=== PATIENT | female | born 1970 | race African-American/Black ===

== ENCOUNTER 2017-03-18 20:46 | Emergency (ER) | payer MEDICAID ==
[~2017-03-18] VITALS: Ht 165.1 cm; Wt 135.0 kg
[~2017-03-18 20:46] MED LIST: ACET-2708 PO; ATEN-42 PO; IBUP-2029 PO; IMIT25; LORA10TA7 PO; METF500T4 PO
[2017-03-19] MEDS ORDERED: SODIUM CHLORIDE 0.9% 1,000 ML IV ONE (02:45)
[2017-03-19] MEDS ORDERED: METOCLOPRAMIDE HCL 10MG/2ML VIAL IV ONE (02:45)
[2017-03-19] MEDS ORDERED: KETOROLAC 30MG/ML VIAL IV ONE (02:45)
[2017-03-19 05:40] VITALS: BP 144/69
== END 2017-03-19 05:33 | disposition home or self-care (01) ==
LOC: ER 22:00
DX: R51 Headache (principal); Z79.899 Other long term (current) drug therapy
CPT/HCPCS: 96361; 96374; 96375; 99285; J1885; J2765; J7030; Z7610

== ENCOUNTER 2018-12-28 05:23 | Emergency (ER) | payer MEDICAID ==
[~2018-12-28] VITALS: Ht 165.1 cm; Wt 129.0 kg
[~2018-12-28 05:23] MED LIST changes: +METF-414 PO; -METF500T4 PO
[2018-12-28 06:48] LABS: BASOPHILS % 1.2 % (0.0-2.0); EOSINOPHILS % 1.3 % (0.0-5.0); HEMATOCRIT. 32.3 % (36.0-48.0); HEMOGLOBIN. 10.4 g/dL (12.0-16.0); LYMPHOCYTES % 45.7 % (20.0-50.0); MEAN CORPUSCULAR HEMOGLOBIN 25.6 pg (28.0-32.0); MEAN CORPUSCULAR VOLUME 79.7 fL (81.0-99.0); MEAN PLATELET VOLUME 6.8 fl (7.4-10.4); MONOCYTES % 6.6 % (2.0-8.0); NEUTROPHILS % 45.2 % (40.0-76.0); PLATELET 311 x1000/uL (130-400); RED BLOOD CELL COUNT 4.06 mill/uL (4.2-5.4); RED CELL DISTRIBUTION WIDTH 18.6 % (11.6-14.6)
[2018-12-28 06:52] LABS: CHLORIDE 108 mEq/L (98-107)
[2018-12-28] MEDS: SODIUM CHLORIDE 0.9% 1,000 ML IV ONE (07:04)
[2018-12-28] MEDS: ONDANSETRON HCL 4MG/2ML INJ IV STA (07:04)
[2018-12-28] MEDS: KETOROLAC 30MG/ML VIAL IV STA (07:04)
[2018-12-28 07:09] LABS: HCG SCREEN NEGATIVE
[2018-12-28 09:32] VITALS: BP 155/89
== END 2018-12-28 09:50 | disposition home or self-care (01) ==
LOC: ER 06:18
DX: G43.909 Migraine, unspecified, not intractable, without status migrainosus (principal); Z79.899 Other long term (current) drug therapy; R07.89 Other chest pain
CPT/HCPCS: 36415; 70450; 80053; 81025; 84703; 85025; 93005; 96374; 96375; 99284; J1885; J2405; J7030

== ENCOUNTER 2020-02-12 12:35 | Emergency (ER) | payer MEDICAID ==
[~2020-02-12] VITALS: Ht 165.1 cm; Wt 136.0 kg
[2020-02-12] MEDS ORDERED: ACETAMINOPHEN 500MG TABLET PO ONE (13:15)
[2020-02-12] MEDS ORDERED: KETOROLAC 30MG/ML VIAL IM SCH (13:15)
[2020-02-12] MEDS ORDERED: DIPHENHYDRAMINE 50MG/ML VIAL IM SCH (13:15)
[2020-02-12 13:29] VITALS: BP 154/74
[2020-02-12] MEDS ORDERED: PROCHLORPERAZINE 10MG/2ML VIAL IM SCH (14:00)
== END 2020-02-12 13:32 | disposition home or self-care (01) ==
LOC: ER 12:35
DX: G43.909 Migraine, unspecified, not intractable, without status migrainosus (principal); I10 Essential (primary) hypertension
CPT/HCPCS: 99283; J0780

== ENCOUNTER 2020-02-12 14:41 | Emergency (ER) | payer MEDICAID ==
[~2020-02-12] VITALS: Ht 165.1 cm; Wt 136.0 kg
[2020-02-12] MEDS ORDERED: KETOROLAC 30MG/ML VIAL IM NR (15:15)
[2020-02-12] MEDS ORDERED: PROCHLORPERAZINE 10MG/2ML VIAL IM NR (15:15)
[2020-02-12] MEDS ORDERED: ACETAMINOPHEN 500MG TABLET PO ONE (15:15)
[2020-02-12] MEDS ORDERED: DIPHENHYDRAMINE 50MG/ML VIAL IM NR (15:15)
[2020-02-12 15:34] VITALS: BP 132/77
== END 2020-02-12 15:39 | disposition home or self-care (01) ==
LOC: ER 14:41
DX: R51 Headache (principal); M25.519 Pain in unspecified shoulder
CPT/HCPCS: 96372; 99284; J0780; J1200; J1885

== ENCOUNTER 2020-04-19 19:48 | Emergency (ER) | payer MEDICAID ==
[~2020-04-19] VITALS: Ht 165.1 cm; Wt 136.0 kg
[2020-04-19] MEDS ORDERED: ONDANSETRON HCL 4MG/2ML INJ IV STA (20:07)
[2020-04-19] MEDS ORDERED: VISCOUS LIDOCAINE 2% 15 ML UDC PO ONE (20:15)
[2020-04-19] MEDS ORDERED: SODIUM CHLORIDE 0.9% 500 ML IV ONE (20:15)
[2020-04-19] MEDS ORDERED: MAGNESIUM/ALUMINUM HYDROXIDE/SIMETHICONE 30ML UDC PO ONE (20:15)
[2020-04-19 20:28] LABS: BASOPHILS % 0.9 % (0.0-2.0); EOSINOPHILS % 1.8 % (0.0-5.0); HEMATOCRIT. 34.9 % (36.0-48.0); HEMOGLOBIN. 11.3 g/dL (12.0-16.0); LYMPHOCYTES % 39.3 % (20.0-50.0); MEAN CORPUSCULAR HEMOGLOBIN 25.7 pg (28.0-32.0); MEAN CORPUSCULAR VOLUME 79.2 fL (81.0-99.0); MEAN PLATELET VOLUME 7.1 fl (7.4-10.4); PLATELET 306 x1000/uL (130-400); RED CELL DISTRIBUTION WIDTH 18.2 % (11.6-14.6)
[2020-04-19 20:35] LABS: CHLORIDE 105 mEq/L (98-107)
[2020-04-19 20:40] LABS: PARTIAL THROMBOPLASTIN TIME 29.6 sec (23.4-31.0); PROTHROMBIN TIME 10.6 sec (9.6-11.0)
[2020-04-19 20:47] LABS: HCG SCREEN NEGATIVE
[2020-04-19] MEDS ORDERED: FAMOTIDINE 20MG TABLET PO ONE (23:00)
[2020-04-19] MEDS ORDERED: IOHEXOL-350 100 ML BOTTLE ONE (23:10)
[2020-04-20] MEDS ORDERED: ASPIRIN 81MG TABLET PO ONE (00:15)
[2020-04-20 01:23] VITALS: BP 134/85
== END 2020-04-20 01:25 | disposition home or self-care (01) ==
LOC: ER 19:48
DX: R07.89 Other chest pain (principal); E66.01 Morbid (severe) obesity due to excess calories; G43.909 Migraine, unspecified, not intractable, without status migrainosus; Z68.42 Body mass index [BMI] 45.0-49.9, adult
CPT/HCPCS: 36415; 80053; 83880; 84484; 84703; 85025; 85610; 85730; 93005; 96361; 96374; 99284; J2405; J7040; Z7610; Q9967

== ENCOUNTER 2021-04-08 02:25 | Emergency (ER) | payer MEDICAID ==
[~2021-04-08] VITALS: Ht 165.1 cm; Wt 137.0 kg
[2021-04-08 05:02] VITALS: BP 177/99
== END 2021-04-08 07:20 | disposition left against medical advice (07) ==
LOC: ER 02:25
DX: U07.1 COVID-19 (principal)
CPT/HCPCS: 87426; 99283

== ENCOUNTER 2022-08-31 18:15 | Emergency (ER) | payer MEDICAID ==
[~2022-08-31] VITALS: Ht 165.1 cm; Wt 144.0 kg
[2022-08-31] MEDS ORDERED: DIPHENHYDRAMINE 50MG/ML VIAL IM ONE (20:30)
[2022-08-31] MEDS ORDERED: ACETAMINOPHEN 325MG TABLET PO ONE (20:30)
[2022-08-31] MEDS ORDERED: KETOROLAC 60MG/2ML VIAL IM ONE (20:30)
[2022-08-31] MEDS ORDERED: ONDANSETRON 4MG ODT PO ONE (20:30)
[2022-08-31] MEDS ORDERED: PROCHLORPERAZINE 10MG/2ML VIAL IM ONE (20:30)
[2022-08-31 21:11] VITALS: BP 173/111
== END 2022-08-31 22:29 | disposition home or self-care (01) ==
LOC: ER 18:15
DX: G43.909 Migraine, unspecified, not intractable, without status migrainosus (principal); R11.0 Nausea; R00.2 Palpitations; Z79.899 Other long term (current) drug therapy
CPT/HCPCS: 93005; 96372; 99284; J0780; J1200; J1885; Q0162

== ENCOUNTER 2023-11-09 07:27 | Emergency (ER) | payer MEDICAID ==
[~2023-11-09] VITALS: Ht 162.6 cm; Wt 115.0 kg
[2023-11-09 07:37] VITALS: O2SAT 98
[2023-11-09] MEDS: KETOROLAC 30MG/ML VIAL IM ONE (08:30)
[2023-11-09] MEDS: METHOCARBAMOL 500MG TABLET PO ONE (08:58)
[2023-11-09] MEDS ORDERED: IBUP-2029 MT (09:16)
[2023-11-09] MEDS ORDERED: METH-653 MT (09:16)
[2023-11-09 09:47] VITALS: BP 162/98; PULSE 88; RESP 18; TEMP 98.7
== END 2023-11-09 09:50 | disposition home or self-care (01) ==
LOC: ER 08:46
DX: S43.102A Unspecified dislocation of left acromioclavicular joint, initial encounter (principal); I10 Essential (primary) hypertension; Z79.899 Other long term (current) drug therapy; Z86.59 Personal history of other mental and behavioral disorders; X58.XXXA Exposure to other specified factors, initial encounter; Y93.89 Activity, other specified; Y92.89 Other specified places as the place of occurrence of the external cause; Y99.8 Other external cause status
CPT/HCPCS: 99283; 29105; 81025; 73030; 96372; J1885; A4565

== ENCOUNTER 2024-04-02 06:24 | Emergency (ER) | payer MEDICAID, OTHER ==
[~2024-04-02] VITALS: Ht 165.1 cm; Wt 136.0 kg
[~2024-04-02 06:24] MED LIST changes: +IBUP-2029 MT; +METH-653 MT
[2024-04-02 06:36] VITALS: O2SAT 99
[2024-04-02 07:05] LABS: CLARITY URINE CLOUDY (CLEAR); COLOR URINE YELLOW (YELLOW); GLUCOSE URINE NEGATIVE (NEGATIVE); KETONES URINE NEGATIVE (NEGATIVE); LEUKOCYTE ESTERASE URINE 1+ (NEGATIVE); NITRITE URINE NEGATIVE (NEGATIVE); OCCULT BLOOD URINE 2+ (NEGATIVE); PH URINE 5.5 (4.5-8.0); PROTEIN URINE 1+ (NEGATIVE); SPECIFIC GRAVITY URINE 1.025 (1.005-1.030)
[2024-04-02 07:19] LABS: SQUAMOUS EPITHELIAL CELL URINE 3+ /lpf (RARE/1+); WBC URINE 25-50 /hpf (0-2); YEAST URINE NONE SEEN
[2024-04-02 07:20] LABS: BACTERIA URINE 2+
[2024-04-02] MEDS: MORPHINE SULFATE 4 MG/ML INJ (FOR IV/IM USE) IV NR ×2 (07:56→08:56)
[2024-04-02] MEDS: ONDANSETRON HCL 4MG/2ML INJ IV NR (07:57)
[2024-04-02 08:37] LABS: BASOPHILS % 1.1 % (0.0-2.0); DIFFERENTIAL COMMENT 0; EOSINOPHILS % 1.6 % (0.0-5.0); HEMOGLOBIN. 11.7 g/dL (12.0-16.0); LYMPHOCYTES % 42.4 % (20.0-50.0); MEAN CORPUSCULAR HEMOGLOBIN 24.2 pg (28.0-32.0); MEAN CORPUSCULAR HGB CONC 30.8 g/dL (31.0-37.0); MEAN CORPUSCULAR VOLUME 78.6 fL (81.0-99.0); MEAN PLATELET VOLUME 7.6 fl (7.4-10.4); MONOCYTES % 6.4 % (2.0-8.0); NEUTROPHILS % 48.5 % (40.0-76.0); PLATELET 263 x1000/uL (130-400); RED BLOOD CELL COUNT 4.84 mill/uL (4.2-5.4); RED CELL DISTRIBUTION WIDTH 20.1 % (11.6-14.6); WHITE BLOOD COUNT 5.9 x1000/uL (4.5-11.0)
[2024-04-02 08:44] LABS: CHLORIDE 104 mEq/L (98-107); SODIUM 137 mEq/L (136-145)
[2024-04-02 08:45] LABS: CALCIUM 9.4 mg/dL (8.7-10.4); CARBON DIOXIDE 28 mEq/L (21-32)
[2024-04-02 08:50] LABS: CREATININE 0.7 mg/dL (0.6-1.0); GLUCOSE 218 mg/dL (70-105); UREA NITROGEN BLOOD 13 mg/dL (9-23)
[2024-04-02 08:51] LABS: ALANINE AMINOTRANSFERASE 23 IU/L (10-49); ALBUMIN 4.5 g/dL (3.2-4.8); ASPARTATE AMINOTRANSFERASE 31 IU/L (<34)
[2024-04-02 08:52] LABS: BILIRUBIN DIRECT 0.1 mg/dL (<=3.0); BILIRUBIN TOTAL 0.6 mg/dL (0.1-1.0); PROTEIN TOTAL 7.6 g/dL (6.0-8.3); PROTHROMBIN TIME 10.9 sec (9.6-11.0)
[2024-04-02] MEDS: CEFTRIAXONE 1GM/50ML 50 ML IV NR (08:53)
[2024-04-02 09:00] LABS: HCG SCREEN NEGATIVE
[2024-04-02] MEDS: IOHEXOL-350 100 ML BOTTLE ONE (10:15)
[2024-04-02] MEDS: HYDRALAZINE 20MG/ML VIAL IV STA (10:36)
[2024-04-02] MEDS: CLONIDINE 0.1MG TABLET PO STA (10:45)
[2024-04-02] MEDS ORDERED: HYDR-4001 MT (10:55)
[2024-04-02 11:20] VITALS: BP 176/85; PULSE 82; RESP 18; TEMP 36.72516; O2SAT 98
== END 2024-04-02 11:32 | disposition home or self-care (01) ==
LOC: ER 06:24
DX: R10.9 Unspecified abdominal pain (principal); Z86.59 Personal history of other mental and behavioral disorders; Z79.899 Other long term (current) drug therapy; Z98.890 Other specified postprocedural states
CPT/HCPCS: 80076; 80048; 81003; 84703; 83690; 85025; 85610; 87086; 36415; 74177; 93005; 96365; 96375; 96376; 99285; Q9967; J0696; J0360; J2405; J2270; Z7610

== ENCOUNTER 2024-04-04 04:13 | Emergency (ER) | payer MEDICAID, OTHER ==
[~2024-04-04] VITALS: Ht 165.1 cm; Wt 136.0 kg
[~2024-04-04 04:13] MED LIST changes: +HYDR-4001 MT
[2024-04-04 04:25] VITALS: O2SAT 98
[2024-04-04 04:48] LABS: BASOPHILS % 0.5 % (0.0-2.0); DIFFERENTIAL COMMENT 0; EOSINOPHILS % 2.4 % (0.0-5.0); HEMATOCRIT. 39.9 % (36.0-48.0); HEMOGLOBIN. 12.8 g/dL (12.0-16.0); LYMPHOCYTES % 60.8 % (20.0-50.0); MEAN CORPUSCULAR HEMOGLOBIN 25.5 pg (28.0-32.0); MEAN CORPUSCULAR VOLUME 79.6 fL (81.0-99.0); MEAN PLATELET VOLUME 7.4 fl (7.4-10.4); MONOCYTES % 5.3 % (2.0-8.0); PLATELET 257 x1000/uL (130-400); RED BLOOD CELL COUNT 5.01 mill/uL (4.2-5.4); RED CELL DISTRIBUTION WIDTH 20.2 % (11.6-14.6)
[2024-04-04 05:00] LABS: CHLORIDE 104 mEq/L (98-107); POTASSIUM 3.5 mEq/L (3.5-5.1); SODIUM 139 mEq/L (136-145)
[2024-04-04 05:01] LABS: CALCIUM 9.6 mg/dL (8.7-10.4); CARBON DIOXIDE 28 mEq/L (21-32)
[2024-04-04 05:06] LABS: CREATININE 0.7 mg/dL (0.6-1.0); GLUCOSE 209 mg/dL (70-105); UREA NITROGEN BLOOD 10 mg/dL (9-23)
[2024-04-04 05:07] LABS: TROPONIN I HIGH SENSITIVITY 14 ng/L (3.0-34)
[2024-04-04 05:08] LABS: ALANINE AMINOTRANSFERASE 24 IU/L (10-49); ALBUMIN 4.5 g/dL (3.2-4.8); ASPARTATE AMINOTRANSFERASE 32 IU/L (<34); BILIRUBIN DIRECT 0.1 mg/dL (<=3.0); BILIRUBIN TOTAL 0.4 mg/dL (0.1-1.0)
[2024-04-04 05:09] LABS: PROTEIN TOTAL 7.8 g/dL (6.0-8.3)
[2024-04-04 05:56] LABS: HCG SCREEN NEGATIVE
[2024-04-04] MEDS: SODIUM CHLORIDE 0.9% 500 ML IV ONE (06:19)
[2024-04-04] MEDS: ONDANSETRON HCL 4MG/2ML INJ IV ONE (06:19)
[2024-04-04] MEDS: MORPHINE SULFATE 4 MG/ML INJ (FOR IV/IM USE) IV ONE (06:19)
[2024-04-04 07:19] LABS: CLARITY URINE CLEAR (CLEAR); COLOR URINE YELLOW (YELLOW); GLUCOSE URINE NEGATIVE (NEGATIVE); KETONES URINE NEGATIVE (NEGATIVE); LEUKOCYTE ESTERASE URINE NEGATIVE (NEGATIVE); NITRITE URINE NEGATIVE (NEGATIVE); OCCULT BLOOD URINE NEGATIVE (NEGATIVE); PH URINE 5.5 (4.5-8.0); PROTEIN URINE NEGATIVE (NEGATIVE); SPECIFIC GRAVITY URINE 1.017 (1.005-1.030); UROBILINOGEN URINE 0.2 E.U./dL (0.2-1.0)
[2024-04-04] MEDS: IOHEXOL-300 100 ML BOTTLE ONE (07:30)
[2024-04-04] MEDS: LIDOCAINE HCL 1% 20ML VIAL INFIL ONE (12:19)
[2024-04-04] MEDS ORDERED: CEPH500T MT (12:21)
[2024-04-04 12:36] VITALS: BP 164/70; PULSE 72; RESP 16; TEMP 98.2
== END 2024-04-04 12:57 | disposition home or self-care (01) ==
LOC: ER 04:13
DX: L02.216 Cutaneous abscess of umbilicus (principal); G43.909 Migraine, unspecified, not intractable, without status migrainosus; Z98.890 Other specified postprocedural states
CPT/HCPCS: 80076; 80048; 81003; 84703; 83690; 85025; 84484; 36415; 74177; 93005; 10060; 96361; 96374; 96375; 99285; Q9967; J3490; J2405; J2270; J7040; Z7610 ×7

== ENCOUNTER 2024-08-25 15:31 | Emergency (ER) | payer OTHER ==
[~2024-08-25] VITALS: Ht 170.2 cm; Wt 119.0 kg
[~2024-08-25 15:31] MED LIST changes: +CEPH500T MT
[2024-08-25 15:32] VITALS: BP 164/79; PULSE 98; RESP 20; TEMP 98.4; O2SAT 100
== END 2024-08-25 16:00 | disposition left against medical advice (07) ==
LOC: ER 15:31
DX: R07.89 Other chest pain (principal); G43.909 Migraine, unspecified, not intractable, without status migrainosus
CPT/HCPCS: 99283; Z7610